=== PATIENT | male | born 1960 | race Two or more races ===

== ENCOUNTER 2024-09-24 08:41 | Outpatient (AMB) | payer MEDICAID, SELFPAY ==
[2024-09-24 08:53] VITALS: BP 168/78; PULSE 82; RESP 19; TEMP 36.6; O2SAT 98; BMI 23.1
--- NOTE | 2024-09-24 08:53 | PD.RESCLINIC ---
Vital Signs 09/24/24 08:53 Height 1.83 m Height Method Stated Weight 77.621 kg Weight Measurement Method Standing Scale BMI 23.1 BP 168/78 H Blood Pressure Source Automatic Cuff Blood Pressure Location Left Upper Arm Position Sitting Respiration 19 Pulse 82 Pulse Source Monitor Temp 97.9 F Temp Source Oral Pulse Oximetry (%) 98 Oxygen Delivery Method Room Air Allergies/Meds Allergies & Medications Allergies No Known Allergies Allergy (Verified 09/24/24 08:54) Medication Reconciliation metformin 500 mg tablet 500 mg PO BIDWMEAL #180 tabs 07/23/24 [Rx Confirmed 09/24/24] sitagliptin phosphate 100 mg tablet (Januvia) 100 mg PO QDAY #90 tabs 07/23/24 [Rx Confirmed 09/24/24] lisinopril 10 mg tablet 10 mg PO QDAY high blood pressure 30 days #30 tabs 09/24/24 [Rx] terbinafine HCl 250 mg tablet 250 mg PO QDAY onychomycosis #30 tabs 09/24/24 [Rx] MA Intake Visit Data Collection New Patient or Established: Established Patient (seen at [facility] within 3 years) Seen by Clinical Staff ONLY (RN/MA): No Pain Present Currently: No Pain scale:: 0 Pain Scale Used: [place]/Numerical PCP or OBGYN visit in last 3 months: Yes Do You Feel Safe at Home: Yes Smoking Status Smoking Status: Current every day smoker Cessation Counseling Provided: SAE was advised that quitting smoking is the single most important factor to protect the health of themselves and their family. Discussed the benefits of quitting smoking with patient. Encouraged patient to quit smoking and provided Cessation assistance materials and resources. Tobacco Use: Cigarette Years smoked: 30 Are you interested in quitting?: Yes Would you like additional Smoking Cessation Counseling?: Yes Immunization / Flu Flu Vaccine in the Last 12 Months: No Flu Vaccine Exclusion Criteria: No Exclusion Criteria Past Medical History Past Medical History NEUROLOGIC: Negative Neurological Disorders CARDIAC: Negative Cardiac Disorders or Congestive Heart Failure RESPIRATORY: Positive Smoking and Tobacco Use; Negative Chronic Obstructive Pulmonary Disease (COPD) GASTROINTESTINAL: Negative Gastrointestinal Disorders, Hepatitis or Colorectal Cancer GENITOURINARY: Negative Genitourinary Disorders, Renal Disease or Prostate Cancer REPRODUCTIVE: Negative Breast Cancer or Testicular Cancer MUSCULOSKELETAL: Negative Bone Cancer ENDOCRINE: Positive Endocrine Disorders and Diabetes Mellitus Type 2; Negative Diabetes Mellitus Type 1 HEMATOLOGIC: Negative Blood Disorders OTHER HISTORY: Negative Hospitalization, Down Syndrome, Developmental Delay, Shingles, Falls, Blood Transfusions, Blood Transfusion Reaction, Anesthesia Reactions, Organ Transplant, Chemotherapy, Hyperbaric Therapy, MRSA, VRSA, Vancomycin-Resistant Enterococci, Human Immunodeficiency Virus (HIV), Chicken Pox, Measles, Mumps, Rubella (Yoruba Measles), Pertussis, Clostridium Difficile, Cancer, Breast Cancer, Cervical Cancer, Colorectal Cancer, Lung Cancer, Ovarian Cancer, Prostate Cancer or Testicular Cancer Family History FAMILY HISTORY: Negative Family Psychiatric Problems, Family Respiratory Disorders, Family Cardiac Disorders, Family Gastrointestinal Problems, Family Cancer, Family Surgery or Family Anesthesia Reaction Surgical History SURGICAL: Negative Organ Transplant Social History SMOKING STATUS: Smoking status: Current every day smoker PACK YEARS: Pack-Years: 30 ALCOHOL: Alcohol Intake: Former (Last drink 2020) HOUSING: Housing: Apartment LIVES WITH: Lives With: Alone Patient Portal Questionaires PHQ-9 PHQ-2 Over the last 2 weeks, how often have you been bothered by any of the following problems? 1. Little interest or pleasure in doing things: not at all PHQ-9 8. Moving or speaking so slowly that other people could have noticed? - Or the opposite - being so fidgety or restless that you have been moving around a lot more than usual: not at all Source: Developed by Drs. Jeffrey Desai, Jasmin Lomax, Emilio Gillespie and colleagues, with an educational shawn from [employer]. Social History Living Situation History Housing: Apartment Tobacco History Smoking Status: Current every day smoker Packs per Day: 0.5 Pack-Years: 30 Alcohol History Alcohol Intake: Former (Last drink 2020) Domestic Abuse History Do You Feel Safe at Home: Yes Review of Systems Report any current symptoms Only answer those that you have currently: Past Medical History Past Medical History Have you ever been diagnosed with any of the following: Cardiology Problems Congestive Heart Failure: No Respiratory Problems Chronic Obstructive Pulmonary Disease (COPD): No Smoking: Yes Tobacco Use: Yes Stomache/Intestinal Problems Hepatitis: No Colorectal Cancer: No Genital/Urinary Problems Renal Disease: No Prostate Cancer: No Reproductive Problems Breast Cancer: No Testicular Cancer: No Musculoskeletal Problems Bone Cancer: No Endocrine Problems Diabetes Mellitus Type 1: No Diabetes Mellitus Type 2: Yes Other Problems Hospitalization: No Down Syndrome: No Developmental Delay: No Shingles: No Falls: No Blood Transfusions: No Blood Transfusion Reaction: No Anesthesia Reactions: No Organ Transplant: No Chemotherapy: No Hyperbaric Therapy: No MRSA: No VRSA: No Vancomycin-Resistant Enterococci: No Human Immunodeficiency Virus (HIV): No Chicken Pox: No Measles: No Mumps: No Rubella (Yoruba Measles): No Pertussis: No Clostridium Difficile: No Cancer: No Cervical Cancer: No Lung Cancer: No Ovarian Cancer: No History of Present Illness HPI Narrative Patient is a 64-year-old male with past medical history of hypertension, type 2 diabetes, and tobacco use disorder who presents to the [facility] on 09/24/2024 for 2 month follow-up visit. Patient feels well and denies any complaints today. Patient reports his BP has been ranging 150s systolic. He is taking lisinopril 5 mg once daily and denies any side effects, tolerating well. BP today in office 168/78. He brought in his BP wrist cuff today and BP was similar range, also taken with manual BP cuff in office was 165/80. We will increase the lisinopril dose. Patient requests refills of terbinafine as well. Patient is still actively smoking a little less than 1 pack per day, states he is still interested in quitting but also not wanting to start medications yet. He has tried to cut down and stop for about 1 week at a time but went back. He is interested in getting the chest CT screening. Objective/Exam Narrative Physical exam: Physical Exam General: Awake and in no acute distress. Conversational and non-toxic appearing. HEENT: Normocephalic, atraumatic, mucous membranes moist. Heart: Regular rate and rhythm, no murmurs. Lungs: Clear to auscultation with no wheezing or crackles. Abdomen: Soft, nondistended, nontender, positive bowel sounds. ?No guarding or rebound tenderness. Neurologic: Alert and oriented x3, no gross neurological deficit, and patient able to move all 4 extremities. Extremities: No edema. Onycchomycosis of toenails. Skin: No rash or ecchymoses. Assessment & Plan Diagnosis / Problem List (1) Hypertension: Status: Chronic Qualifiers: Hypertension type: primary hypertension Qualified Code(s): I10 - Essential (primary) hypertension Assessment & Plan: History of essential hypertension, previously tried control with losartan 50 mg BID, patient complained of dizziness, tried adjusting to 50 mg qAM and 25 mg qPM however patient stopped medication altogether. Patient reports BP averaged about 140-150 systolic at home. 07/23/2024: In office BP 183/89. 09/24/2024: In office BP 168/78. 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 States last seen around 03/2024. Encouraged to see at least once yearly. Supervisor Pumping: None. Completed diabetic foot exam on 07/23/2024. Plan: -Follow-up hemoglobin A1c lab ordered - [facility] form filled out -Continue home metformin 500 mg twice daily -Continue home sitagliptin 100 mg once daily (3) Microalbuminuria: Status: Chronic Assessment & Plan: Alb/Cr ratio: 46 [49 in 01/2024] = microalbuminuria Plan: -Encouraged patient compliance with BP control especially with an PENNY or ARB (4) Onychomycosis: Status: Chronic Assessment & Plan: Patient reports improvement after starting terbinafine, however had run out of the medication. Over the counter medications had not been helping. Plan: -Continue treatment with terbinafine 250 mg once daily - refilled (5) Tobacco dependence with current use: Status: Chronic Assessment & Plan: Patient reports history of smoking since age 13. He was also a former drinker and reports that he was able to stop drinking. He would prefer to try quitting smoking by himself without additional medications or supplements. He is working to decrease his dose of tobacco. Plan: -Pending CT chest low intensity for screening of lung cancer - awaiting scheduling -Patient was counseled on tobacco cessation including options for assistance including medications and nicotine replacement therapy, interested in quitting however declines assistance for now Office Procedures [facility] Level of Care Nursing/Assessment Patient Status: Established Patient Nursing Assessment/Reassessment: Medication Reconciliation, Update PMH in EMR and Vital Signs Coordination of Care: Complex Care and Chronic Disease 1-5, Education Complex Pt/Fam, Results/Orders obtained and Staff clarify orders Established Patient Charge Established Patient Point Assignment: 90 Established Patient Point Charge: EP Level 3 (80-115)
== END 2024-09-24 09:35 | disposition home or self-care (01) ==
LOC: HODAHC 08:41
PROVIDERS: PCP Student in an Organized Health Care Education/Training Program; Referring Provider Student in an Organized Health Care Education/Training Program; Supervising Provider Internal Medicine; Visit Provider Student in an Organized Health Care Education/Training Program
DX: I10 Essential (primary) hypertension (principal); F17.210 Nicotine dependence, cigarettes, uncomplicated; E11.9 Type 2 diabetes mellitus without complications; R80.9 Proteinuria, unspecified; B35.1 Tinea unguium
CPT/HCPCS: 99213; G0463

== ENCOUNTER 2024-11-26 08:40 | Outpatient (AMB) | payer MEDICAID, SELFPAY ==
--- NOTE | 2024-11-26 08:41 | ACNOTE_ITS ---
Vital Signs 11/26/24 08:47 Height 1.83 m Height Method Stated Weight 76.204 kg Weight Measurement Method Standing Scale BMI 22.8 BP 188/90 H Blood Pressure Source Automatic Cuff Blood Pressure Location Left Upper Arm Position Sitting Respiration 16 Pulse 84 Pulse Source Monitor Temp 97.8 F Temp Source Oral Pulse Oximetry (%) 98 Oxygen Delivery Method Room Air Allergies/Meds Allergies & Medications Allergies No Known Allergies Allergy (Verified 11/26/24 08:48) Medication Reconciliation amlodipine 5 mg tablet 5 mg PO QDAY #30 tabs 11/26/24 [Rx] lisinopril 20 mg tablet 20 mg PO QDAY #30 tabs 11/26/24 [Rx] metformin 500 mg tablet 500 mg PO BIDWMEAL #180 tabs 11/26/24 [Rx] nicotine 14 mg/24 hr daily transdermal patch (Nicoderm CQ) 1 patch transdermal Q24H #28 ea 11/26/24 [Rx] sitagliptin phosphate 100 mg tablet (Januvia) 100 mg PO QDAY #90 tabs 11/26/24 [Rx] terbinafine HCl 250 mg tablet 250 mg PO QDAY onychomycosis #30 tabs 11/26/24 [Rx] MA Intake Visit Data Collection New Patient or Established: Established Patient (seen at [facility] within 3 years) Seen by Clinical Staff ONLY (RN/MA): No Reason for Visit:: hypertension and diabetes follow up Pain Present Currently: No Pain scale:: 0 Pain Scale Used: [place]/Numerical PCP or OBGYN visit in last 3 months: Yes Smoking Status Smoking Status: Current every day smoker Cessation Counseling Provided: SAE was advised that quitting smoking is the single most important factor to protect the health of themselves and their family. Discussed the benefits of quitting smoking with patient. Encouraged patient to quit smoking and provided Cessation assistance materials and resources. Tobacco Use: Cigarette Years smoked: 50 Are you interested in quitting?: Yes Would you like additional Smoking Cessation Counseling?: Yes Immunization / Flu Flu Vaccine in the Last 12 Months: No Flu Vaccine Exclusion Criteria: No Exclusion Criteria Past Medical History Past Medical History NEUROLOGIC: Negative Neurological Disorders CARDIAC: Negative Cardiac Disorders or Congestive Heart Failure RESPIRATORY: Positive Smoking and Tobacco Use; Negative Chronic Obstructive Pulmonary Disease (COPD) GASTROINTESTINAL: Negative Gastrointestinal Disorders, Hepatitis or Colorectal Cancer GENITOURINARY: Negative Genitourinary Disorders, Renal Disease or Prostate Cancer REPRODUCTIVE: Negative Breast Cancer or Testicular Cancer MUSCULOSKELETAL: Negative Bone Cancer ENDOCRINE: Positive Endocrine Disorders and Diabetes Mellitus Type 2; Negative Diabetes Mellitus Type 1 HEMATOLOGIC: Negative Blood Disorders OTHER HISTORY: Negative Hospitalization, Down Syndrome, Developmental Delay, Shingles, Falls, Blood Transfusions, Blood Transfusion Reaction, Anesthesia Reactions, Organ Transplant, Chemotherapy, Hyperbaric Therapy, MRSA, VRSA, Vancomycin-Resistant Enterococci, Human Immunodeficiency Virus (HIV), Chicken Pox, Measles, Mumps, Rubella (Bahamian Measles), Pertussis, Clostridium Difficile, Cancer, Breast Cancer, Cervical Cancer, Colorectal Cancer, Lung Cancer, Ovarian Cancer, Prostate Cancer or Testicular Cancer Family History FAMILY HISTORY: Negative Family Psychiatric Problems, Family Respiratory Disorders, Family Cardiac Disorders, Family Gastrointestinal Problems, Family Cancer, Family Surgery or Family Anesthesia Reaction Surgical History SURGICAL: Negative Organ Transplant Social History SMOKING STATUS: Smoking status: Current every day smoker PACK YEARS: Pack-Years: 30 ALCOHOL: Alcohol Intake: Former (Last drink 2020) HOUSING: Housing: Apartment LIVES WITH: Lives With: Alone Patient Portal Questionaires PHQ-9 PHQ-2 Over the last 2 weeks, how often have you been bothered by any of the following problems? 1. Little interest or pleasure in doing things: not at all PHQ-9 8. Moving or speaking so slowly that other people could have noticed? - Or the opposite - being so fidgety or restless that you have been moving around a lot more than usual: not at all Source: Developed by Drs. Jeffrey Desai, Jasmin Lomax, Emilio Gillespie and colleagues, with an educational shawn from [employer]. Social History Living Situation History Housing: Apartment Tobacco History Smoking Status: Current every day smoker Packs per Day: 0.5 Pack-Years: 30 Alcohol History Alcohol Intake: Former (Last drink 2020) Review of Systems Report any current symptoms Only answer those that you have currently: Past Medical History Past Medical History Have you ever been diagnosed with any of the following: Cardiology Problems Congestive Heart Failure: No Respiratory Problems Chronic Obstructive Pulmonary Disease (COPD): No Smoking: Yes Tobacco Use: Yes [place]omache/Intestinal Problems Hepatitis: No Colorectal Cancer: No Genital/Urinary Problems Renal Disease: No Prostate Cancer: No Reproductive Problems Breast Cancer: No Testicular Cancer: No Musculoskeletal Problems Bone Cancer: No Endocrine Problems Diabetes Mellitus Type 1: No Diabetes Mellitus Type 2: Yes Other Problems Hospitalization: No Down Syndrome: No Developmental Delay: No Shingles: No Falls: No Blood Transfusions: No Blood Transfusion Reaction: No Anesthesia Reactions: No Organ Transplant: No Chemotherapy: No Hyperbaric Therapy: No MRSA: No VRSA: No Vancomycin-Resistant Enterococci: No Human Immunodeficiency Virus (HIV): No Chicken Pox: No Measles: No Mumps: No Rubella (Bahamian Measles): No Pertussis: No Clostridium Difficile: No Cancer: No Cervical Cancer: No Lung Cancer: No Ovarian Cancer: No History of Present Illness HPI Narrative Patient is a 64-year-old male with past medical history of hypertension, type 2 diabetes, and tobacco use disorder who presents to the [facility] on 09/24/2024 for 2 month follow-up visit. Patient feels well and denies any complaints today. Patient reports his BP has been ranging 150s systolic. He is taking lisinopril 5 mg once daily and denies any side effects, tolerating well. BP today in office 168/78. He brought in his BP wrist cuff today and BP was similar range, also taken with manual BP cuff in office was 165/80. We will increase the lisinopril dose. Patient requests refills of terbinafine as well. Patient is still actively smoking a little less than 1 pack per day, states he is still interested in quitting but also not wanting to start medications yet. He has tried to cut down and stop for about 1 week at a time but went back. He is interested in getting the chest CT screening. 11/26/2024: 64-year-old man with past medical history of uncontrolled hypertension, diabetes mellitus type 2 [id number], tobacco use disorder who came to the [facility] for follow-up with labs. Patient denied any acute complaints at the moment like shortness of breath, dizziness, chest pain, hypoglycemia episodes or any other associated symptoms different than the mentioned above. Follow-up labs showed A1c 6.2, cholesterol 133, triglycerides 75 HDL 50 LDL 68, average glucose 173, creatinine 0.70, EGFR 104, liver enzymes within normal limits. patient stated that at home his blood pressure has been average of 170-160 and sometimes 150's. Patient endorsed that sometimes he has tingling sensation bilateral lower extremities and some fatigue on the legs when he is not very active, and that it is relieved by exercise. Patient is still actively smoking around 10 to 12 cigarettes and he still interested in quitting and does not want to try medications at this time, patient was counseled about importance to quit smoking and was recommended to use nicotine gum or patches to relieve the smoking cravings and he will like to give them a try. Patient was referred for annual ophthalmology and podiatry screening for diabetes retinopathy and neuropathy. We reordered CT chest screening for lung cancer and we will optimize blood pressure control and increase lisinopril to 20 mg p.o. daily and add amlodipine 5 mg p.o. daily Patient was counseled about medication side effects of PENNY/ARB's and calcium channel blockers that include decreased kidney function for which CMP for close monitoring were ordered as well as lower extremity edema. We will follow-up with lab results in 3 to 4 weeks. Review of Systems Review of Systems Systems Reviewed: All systems reviewed, normal except as documented Objective/Exam Narrative Physical exam: General: No acute distress, well appearing, alert, interactive. HEENT: NC/AT, PERRL, EOMI, Good conjugate gaze, moist mucous membranes, oropharynx clear. Neck: Supple, No masses, No adenopathy, carotid pulse 2+ bilaterally without bruits, No JVD, normal range of motion. Chest: Symmetrical, atraumatic, and with equal expansion , Nontender on palpation no deformity and no crepitus. CVS: S1 and S2 present, Regular rate and rhythm, No murmurs, rubs or gallops perceived during auscultation. Lungs: Normal respiratory effort, CTAB, no wheezing, rhonchi or rales perceived during auscultation, No intercostal or subcostal retraction. Abdomen : Soft, no tenderness to palpation, no guarding ,no rebound Extremities: No edema, warm well perfused, normal tone and ROM, strength and sensation intact, cap refill less than 2, +2 dp equal bilaterally, able to move all 4 extremities spontaneously, decreased sensation on bilateral lower extremities with monofilament test more pronounced on left lower extremity, bilateral onychomycosis of toes. Skin: Intact, no rashes, no lesions, no erythema or jaundice noted Neuro: AOx4, no focal neurologic deficits noted, GCS 15 Psych: Appropriate mood and affect. Assessment & Plan Diagnosis / Problem List (1) Hypertension: Status: Chronic Qualifiers: Hypertension type: primary hypertension Qualified Code(s): I10 - Essential (primary) hypertension Assessment & Plan: History of essential hypertension, previously tried control with losartan 50 mg BID, patient complained of dizziness, tried adjusting to 50 mg qAM and 25 mg qPM however patient stopped medication altogether. Patient reports BP averaged about 140-150 systolic at home. 07/23/2024: In office BP 183/89. 09/24/2024: In office BP 168/78. 11/26/2023: In office BP 188/90. Plan: - Increase lisinopril from 10 mg to 20 mg once daily - Add amlodipine 10mg daily - Follow up in 3-4 weeks with labs (2) Diabetes mellitus: Status: Chronic Qualifiers: Diabetes mellitus complication detail: with diabetic microalbuminuria Diabetes mellitus complication status: with kidney complications Diabetes mellitus usp insulin use: without remote computer terminal operator use Diabetes mellitus type: type 2 Qualified Code(s): E11.29 - Type 2 diabetes mellitus with other diabetic kidney complication; R80.9 - Proteinuria, unspecified Assessment & Plan: A1c 05/2024: 6.5 = controlled Alb/Cr ratio: 46 [49 in 01/2024] = microalbuminuria Pleating Supervisor: Patient sees an Pleating Supervisor in [place]. States last seen around 03/2024. Encouraged to see at least once yearly. Taxation Economist: None. Completed diabetic foot exam on 07/23/2024. A1c 11/12/2024: 6.2 = controlled Plan: ? Referral to construction recruiter and polymerization oven operator for annual screening for diabetic neuropathy and nephropathy -Continue home metformin 500 mg twice daily -Continue home sitagliptin 100 mg once daily (3) Microalbuminuria: Status: Chronic Assessment & Plan: Alb/Cr ratio: 46 [49 in 01/2024] = microalbuminuria Plan: -Encouraged patient compliance with BP control especially with an PENNY or ARB. (4) Tobacco dependence with current use: Status: Chronic Assessment & Plan: Patient reports history of smoking since age 13. He was also a former drinker and reports that he was able to stop drinking. He would prefer to try quitting smoking by himself without additional medications or supplements. He is working to decrease his dose of tobacco. Plan: - Reorder CT chest low intensity for screening of lung cancer - Patient was counseled on tobacco cessation including options for assistance including medications and nicotine replacement therapy, interested in quitting and would like to try nicotine replacement patches. ? Prescribed nicotine patches and we will assess tolerance and follow-up in 3 weeks (5) Onychomycosis: Status: Chronic Assessment & Plan: Patient reports improvement after starting terbinafine, Plan: -Continue treatment with terbinafine 250 mg once daily refilled today (6) Bilateral leg paresthesia: Status: Acute Assessment & Plan: Patient endorsed bilateral leg paresthesias and fatigue that he stated that improved with exercise and movement. Differentials include PAD due to patient history of heavy smoking seen he has 13 years old as well as diabetic neuropathy. Plan: Patient was counseled about importance of weekly exercise at least 30 minutes to improve symptoms of claudication ? Referral to construction recruiter for annual diabetic screening for neuropathy. Orders: Orders CT lung low-dose screening wo Today Z53.20 - Procedure and treatment not carried out because of patient's decision for unspecified reasons Referrals Ophthalmology Z13.5 - Encounter for screening for eye and ear disorders Podiatry B35.1 - Tinea unguium, Z13.89 - Encounter for screening for other disorder Additional Assessment Patient discussed with my attending Dr Richi Mariee MD PGY-3 Disclaimer: Despite multiple revisions, due to the dictation software being used, the document bellow may not be free of grammatical errors including phonetic/typographic errors. However, this does not deter from our commitment to providing health care in the patient's best interest in mind. Internal Medicine Attending Note: Case discussed with and agree with note and management plan of Resident Mehreen carrion as per Resident's Note above. Issues of concern for present visit are as follows: Follow-up visit. Most recent labs reviewed. Hemoglobin A1c at goal of 6.2. Lipid levels in good range. Renal function stable. Diet, exercise, footcare, eye care reviewed. Patient noting some symptoms potentially consistent with diabetic neuropathy. Continues to smoke, counseled on cessation, willing to try nicotine replacement therapy. We will reorder a CT of the chest low-dose screening for lung cancer. Referrals for ophthalmology and podiatry for screening given diabetes. Blood pressure noted to be elevated again today. We will increase lisinopril to 20 mg daily and add amlodipine 5 mg daily. Watch for side effect of edema. Price Stoddard MD Physician Billing Established Patient Established Patient: E/M Level 3-CPT 23856 Office Procedures [facility] Level of Care Nursing/Assessment Patient Status: Established Patient Nursing Assessment/Reassessment: Medication Reconciliation, Update PMH in EMR and Vital Signs Coordination of Care: Complex Care and Chronic Disease 1-5, Consent,records obtained, informed consent, Education Simp Pt/Fam and Staff clarify orders Established Patient Charge Established Patient Point Assignment: 85 Established Patient Point Charge: EP Level 3 (80-115)
[2024-11-26 08:47] VITALS: BP 188/90; PULSE 84; RESP 16; TEMP 36.6; O2SAT 98; BMI 22.8
== END 2024-11-26 10:12 | disposition home or self-care (01) ==
LOC: HODAHC 08:40
PROVIDERS: PCP Student in an Organized Health Care Education/Training Program; Referring Provider Student in an Organized Health Care Education/Training Program; Supervising Provider Internal Medicine; Visit Provider Student in an Organized Health Care Education/Training Program
DX: B35.1 Tinea unguium (principal); I10 Essential (primary) hypertension; E11.9 Type 2 diabetes mellitus without complications; R80.9 Proteinuria, unspecified; R20.2 Paresthesia of skin; F17.210 Nicotine dependence, cigarettes, uncomplicated; Z71.6 Tobacco abuse counseling
CPT/HCPCS: 99213; G0463

== ENCOUNTER 2024-12-17 08:36 | Outpatient (AMB) | payer MEDICAID, SELFPAY ==
[2024-12-17 08:47] VITALS: BP 145/79; PULSE 86; RESP 16; TEMP 36.8; O2SAT 98; BMI 22.5
--- NOTE | 2024-12-17 08:47 | PD.RESCLINIC ---
Vital Signs 12/17/24 08:47 Height 1.83 m Height Method Stated Weight 75.353 kg Weight Measurement Method Standing Scale BMI 22.5 BP 145/79 H Blood Pressure Source Automatic Cuff Blood Pressure Location Left Upper Arm Position Sitting Respiration 16 Pulse 86 Pulse Source Monitor Temp 98.2 F Temp Source Temporal Artery Scan Pulse Oximetry (%) 98 Oxygen Delivery Method Room Air Allergies/Meds Allergies & Medications Allergies No Known Allergies Allergy (Verified 01/28/25 08:46) Medication Reconciliation metformin 500 mg tablet 500 mg PO BIDWMEAL #180 tabs 11/26/24 [Rx Confirmed 01/28/25] nicotine 14 mg/24 hr daily transdermal patch (Nicoderm CQ) 1 patch transdermal Q24H #28 ea 11/26/24 [Rx Confirmed 01/28/25] sitagliptin phosphate 100 mg tablet (Januvia) 100 mg PO QDAY #90 tabs 11/26/24 [Rx Confirmed 01/28/25] terbinafine HCl 250 mg tablet 250 mg PO QDAY onychomycosis #30 tabs 11/26/24 [Rx Confirmed 01/28/25] amlodipine 10 mg tablet 10 mg PO QDAY high blood pressure 30 days #30 tabs 01/28/25 [Rx] guaifenesin 400 mg tablet 400 mg PO QID PRN cough #20 tabs 01/28/25 [Rx] lisinopril 40 mg tablet 40 mg PO QDAY high blood pressure 30 days #30 tabs 01/28/25 [Rx] MA Intake Visit Data Collection New Patient or Established: Established Patient (seen at [facility] within 3 years) Seen by Clinical Staff ONLY (RN/MA): No Pain Present Currently: No Pain scale:: 0 Pain Scale Used: [place]/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 Discussed the benefits of quitting smoking with patient. Encouraged patient to quit smoking and provided Cessation assistance materials and resources. Tobacco Use: Cigarette Years smoked: 40 Are you interested in quitting?: Yes Would you like additional Smoking Cessation Counseling?: No Immunization / Flu Flu Vaccine in the Last 12 Months: No Flu Vaccine Exclusion Criteria: No Exclusion Criteria Past Medical History Past Medical History NEUROLOGIC: Negative Neurological Disorders CARDIAC: Negative Cardiac Disorders or Congestive Heart Failure RESPIRATORY: Positive Smoking and Tobacco Use; Negative Chronic Obstructive Pulmonary Disease (COPD) GASTROINTESTINAL: Negative Gastrointestinal Disorders, Hepatitis or Colorectal Cancer GENITOURINARY: Negative Genitourinary Disorders, Renal Disease or Prostate Cancer REPRODUCTIVE: Negative Breast Cancer or Testicular Cancer MUSCULOSKELETAL: Negative Bone Cancer ENDOCRINE: Positive Endocrine Disorders and Diabetes Mellitus Type 2; Negative Diabetes Mellitus Type 1 HEMATOLOGIC: Negative Blood Disorders OTHER HISTORY: Negative Hospitalization, Down Syndrome, Developmental Delay, Shingles, Falls, Blood Transfusions, Blood Transfusion Reaction, Anesthesia Reactions, Organ Transplant, Chemotherapy, Hyperbaric Therapy, MRSA, VRSA, Vancomycin-Resistant Enterococci, Human Immunodeficiency Virus (HIV), Chicken Pox, Measles, Mumps, Rubella (Jordanian Measles), Pertussis, Clostridium Difficile, Cancer, Breast Cancer, Cervical Cancer, Colorectal Cancer, Lung Cancer, Ovarian Cancer, Prostate Cancer or Testicular Cancer Family History FAMILY HISTORY: Negative Family Psychiatric Problems, Family Respiratory Disorders, Family Cardiac Disorders, Family Gastrointestinal Problems, Family Cancer, Family Surgery or Family Anesthesia Reaction Surgical History SURGICAL: Negative Organ Transplant Social History SMOKING STATUS: Smoking status: Current every day smoker PACK YEARS: Pack-Years: 30 ALCOHOL: Alcohol Intake: Former (Last drink 2020) HOUSING: Housing: Apartment LIVES WITH: Lives With: Alone Patient Portal Questionaires PHQ-9 PHQ-2 Over the last 2 weeks, how often have you been bothered by any of the following problems? 1. Little interest or pleasure in doing things: not at all PHQ-9 8. Moving or speaking so slowly that other people could have noticed? - Or the opposite - being so fidgety or restless that you have been moving around a lot more than usual: not at all Source: Developed by Drs. Jeffrey Desai, Jasmin Lomax, Emilio Gillespie and colleagues, with an educational shawn from [employer]. Social History Living Situation History Housing: Apartment Tobacco History Smoking Status: Current every day smoker Packs per Day: 0.5 Pack-Years: 30 Alcohol History Alcohol Intake: Former (Last drink 2020) Domestic Abuse History Do You Feel Safe at Home: Yes Review of Systems Report any current symptoms Only answer those that you have currently: Past Medical History Past Medical History Have you ever been diagnosed with any of the following: Cardiology Problems Congestive Heart Failure: No Respiratory Problems Chronic Obstructive Pulmonary Disease (COPD): No Smoking: Yes Tobacco Use: Yes Stomache/Intestinal Problems Hepatitis: No Colorectal Cancer: No Genital/Urinary Problems Renal Disease: No Prostate Cancer: No Reproductive Problems Breast Cancer: No Testicular Cancer: No Musculoskeletal Problems Bone Cancer: No Endocrine Problems Diabetes Mellitus Type 1: No Diabetes Mellitus Type 2: Yes Other Problems Hospitalization: No Down Syndrome: No Developmental Delay: No Shingles: No Falls: No Blood Transfusions: No Blood Transfusion Reaction: No Anesthesia Reactions: No Organ Transplant: No Chemotherapy: No Hyperbaric Therapy: No MRSA: No VRSA: No Vancomycin-Resistant Enterococci: No Human Immunodeficiency Virus (HIV): No Chicken Pox: No Measles: No Mumps: No Rubella (Jordanian Measles): No Pertussis: No Clostridium Difficile: No Cancer: No Cervical Cancer: No Lung Cancer: No Ovarian Cancer: No History of Present Illness HPI Narrative Patient is a 65-year-old male with past medical history of hypertension, type 2 diabetes, and tobacco use disorder who presents to the [facility] on 12/17/2024 for 1 month follow-up visit for BP recheck. Office BP 145/79 today. Patient has been compliant with lisinopril 20 mg daily and amlodipine 5 mg daily. BP overall is improved. Patient denies any side effects with these current medications and denies cough with the lisinopril. Review of CMP labs ordered last visit and resulted 12/11/2024 show slightly elevated glucose at 105 otherwise normal, BUN 17, creatinine 0.77, GFR 105. He has an upcoming appointment with Training Representative Dr. Alexis Mccullough in a few weeks. Patient is still smoking a little less than pack per day reports still has not received scheduling for low-dose screening chest CT, will check status. Objective/Exam Narrative Physical exam: Physical Exam General: Awake and in no acute distress. Conversational and non-toxic appearing. HEENT: Normocephalic, atraumatic, mucous membranes moist. Heart: Regular rate and rhythm, no murmurs. Lungs: Clear to auscultation with no wheezing or crackles. Abdomen: Soft, nondistended, nontender, positive bowel sounds. ?No guarding or rebound tenderness. Neurologic: Alert and oriented x3, no gross neurological deficit, and patient able to move all 4 extremities. Extremities: No edema. Onycchomycosis of toenails. Skin: No rash or ecchymoses. Assessment & Plan Diagnosis / Problem List (1) Hypertension: Status: Chronic Qualifiers: Hypertension type: primary hypertension Qualified Code(s): I10 - Essential (primary) hypertension Assessment & Plan: History of essential hypertension. Previously tried control with losartan 50 mg BID, patient complained of dizziness, tried adjusting to 50 mg qAM and 25 mg qPM however patient stopped medication altogether. Patient reports BP averaged about 140-150 systolic at home. 07/23/2024: BP 183/89 09/24/2024: BP 168/78 11/26/2024: BP 188/90 12/17/2024: BP 145/79 Plan: - Continue lisinopril 20 mg daily - Continue amlodipine 5 mg daily - Follow up in 6 weeks for BP check, follow up with referrals (2) Tobacco dependence with current use: Status: Chronic Assessment & Plan: Patient reports history of smoking since age 13. He was also a former drinker and reports that he was able to stop drinking. He would prefer to try quitting smoking by himself without additional medications or supplements. He is working to decrease his dose of tobacco. Patient reported difficulty sleeping on the nicotine patches. Plan: - Call for appointment CT chest low intensity for screening of lung cancer - Patient was counseled on tobacco cessation including options for assistance including medications and nicotine replacement therapy, interested in quitting and would like to try nicotine replacement patches. - Use nicotine patches (3) Diabetes mellitus: Status: Chronic Qualifiers: Diabetes mellitus type: type 2 Diabetes mellitus penitentiary insulin use: without penitentiary use Diabetes mellitus complication status: with kidney complications Diabetes mellitus complication detail: with diabetic microalbuminuria Qualified Code(s): E11.29 - Type 2 diabetes mellitus with other diabetic kidney complication; R80.9 - Proteinuria, unspecified Assessment & Plan: A1c 05/2024: 6.5 = controlled Alb/Cr ratio: 46 [49 in 01/2024] = microalbuminuria Automobile Mechanic Supervisor: Patient sees an Automobile Mechanic Supervisor in [place]. States last seen around 03/2024. Encouraged to see at least once yearly. Training Representative: None. Completed diabetic foot exam on 07/23/2024. A1c 11/12/2024: 6.2 = controlled Plan: -Continue regular follow up with wood pile driver operator and resistor tester for annual screening for diabetic neuropathy and nephropathy -Continue home metformin 500 mg twice daily -Continue home sitagliptin 100 mg once daily (4) Microalbuminuria: Status: Chronic Assessment & Plan: Alb/Cr ratio: 46 [49 in 01/2024] = microalbuminuria Plan: -Encouraged patient compliance with BP control especially with an PENNY or ARB. (5) Onychomycosis: Status: Chronic Assessment & Plan: Patient reports improvement after starting terbinafine, Plan: -Continue treatment with terbinafine 250 mg once daily (6) Bilateral leg paresthesia: Status: Acute Assessment & Plan: Patient endorsed bilateral leg paresthesias and fatigue that he stated that improved with exercise and movement. Differentials include PAD due to patient history of heavy smoking seen he has 13 years old as well as diabetic neuropathy. Plan: - Patient sees his wood pile driver operator Dr. Schmidt in a few weeks Office Procedures [facility] Level of Care Nursing/Assessment Patient Status: Established Patient Nursing Assessment/Reassessment: Medication Reconciliation, Update PMH in EMR and Vital Signs Coordination of Care: Complex Care and Chronic Disease 1-5, Consent,records obtained, informed consent, Education Simp Pt/Fam, Results/Orders obtained and Staff clarify orders Established Patient Charge Established Patient Point Assignment: 90 Established Patient Point Charge: EP Level 3 (80-115)
== END 2024-12-17 10:17 | disposition home or self-care (01) ==
LOC: HODAHC 08:36
PROVIDERS: PCP Student in an Organized Health Care Education/Training Program; Referring Provider Student in an Organized Health Care Education/Training Program; Supervising Provider Internal Medicine; Visit Provider Student in an Organized Health Care Education/Training Program
DX: I10 Essential (primary) hypertension (principal); E11.9 Type 2 diabetes mellitus without complications; F17.210 Nicotine dependence, cigarettes, uncomplicated; R80.9 Proteinuria, unspecified; B35.1 Tinea unguium; R20.2 Paresthesia of skin
CPT/HCPCS: 99213; G0463

== ENCOUNTER 2025-01-28 08:25 | Outpatient (AMB) | payer MEDICAID, SELFPAY ==
[2025-01-28 08:45] VITALS: BP 163/77; PULSE 94; RESP 16; TEMP 36.8; O2SAT 99; BMI 22.4
--- NOTE | 2025-01-28 08:45 | PD.RESCLINIC ---
Vital Signs 01/28/25 08:45 Height 1.83 m Height Method Stated Weight 75.07 kg Weight Measurement Method Standing Scale BMI 22.4 BP 163/77 H Blood Pressure Source Automatic Cuff Blood Pressure Location Left Upper Arm Position Sitting Respiration 16 Pulse 94 Pulse Source Monitor Temp 98.3 F Temp Source Temporal Artery Scan Pulse Oximetry (%) 99 Oxygen Delivery Method Room Air Allergies/Meds Allergies & Medications Allergies No Known Allergies Allergy (Verified 01/28/25 08:46) Medication Reconciliation metformin 500 mg tablet 500 mg PO BIDWMEAL #180 tabs 11/26/24 [Rx Confirmed 01/28/25] nicotine 14 mg/24 hr daily transdermal patch (Nicoderm CQ) 1 patch transdermal Q24H #28 ea 11/26/24 [Rx Confirmed 01/28/25] sitagliptin phosphate 100 mg tablet (Januvia) 100 mg PO QDAY #90 tabs 11/26/24 [Rx Confirmed 01/28/25] terbinafine HCl 250 mg tablet 250 mg PO QDAY onychomycosis #30 tabs 11/26/24 [Rx Confirmed 01/28/25] amlodipine 10 mg tablet 10 mg PO QDAY high blood pressure 30 days #30 tabs 01/28/25 [Rx] guaifenesin 400 mg tablet 400 mg PO QID PRN cough #20 tabs 01/28/25 [Rx] lisinopril 40 mg tablet 40 mg PO QDAY high blood pressure 30 days #30 tabs 01/28/25 [Rx] MA Intake Visit Data Collection New Patient or Established: Established Patient (seen at [facility] within 3 years) Seen by Clinical Staff ONLY (RN/MA): No Reason for Visit:: 1 month f/u BP recheck Pain Present Currently: No Pain scale:: 0 Pain Scale Used: [place]/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 Discussed the benefits of quitting smoking with patient. Encouraged patient to quit smoking and provided Cessation assistance materials and resources. Tobacco Use: Cigarette Immunization / Flu Flu Vaccine in the Last 12 Months: No Flu Vaccine Exclusion Criteria: No Exclusion Criteria Past Medical History Past Medical History NEUROLOGIC: Negative Neurological Disorders CARDIAC: Negative Cardiac Disorders or Congestive Heart Failure RESPIRATORY: Positive Smoking and Tobacco Use; Negative Chronic Obstructive Pulmonary Disease (COPD) GASTROINTESTINAL: Negative Gastrointestinal Disorders, Hepatitis or Colorectal Cancer GENITOURINARY: Negative Genitourinary Disorders, Renal Disease or Prostate Cancer REPRODUCTIVE: Negative Breast Cancer or Testicular Cancer MUSCULOSKELETAL: Negative Bone Cancer ENDOCRINE: Positive Endocrine Disorders and Diabetes Mellitus Type 2; Negative Diabetes Mellitus Type 1 HEMATOLOGIC: Negative Blood Disorders OTHER HISTORY: Negative Hospitalization, Down Syndrome, Developmental Delay, Shingles, Falls, Blood Transfusions, Blood Transfusion Reaction, Anesthesia Reactions, Organ Transplant, Chemotherapy, Hyperbaric Therapy, MRSA, VRSA, Vancomycin-Resistant Enterococci, Human Immunodeficiency Virus (HIV), Chicken Pox, Measles, Mumps, Rubella (Stateless Measles), Pertussis, Clostridium Difficile, Cancer, Breast Cancer, Colorectal Cancer, Lung Cancer, Prostate Cancer or Testicular Cancer Family History FAMILY HISTORY: Negative Family Psychiatric Problems, Family Respiratory Disorders, Family Cardiac Disorders, Family Gastrointestinal Problems, Family Cancer, Family Surgery or Family Anesthesia Reaction Surgical History SURGICAL: Negative Organ Transplant Social History SMOKING STATUS: Smoking status: Current every day smoker PACK YEARS: Pack-Years: 30 ALCOHOL: Alcohol Intake: Former (Last drink 2020) HOUSING: Housing: Apartment LIVES WITH: Lives With: Alone Patient Portal Questionaires PHQ-9 PHQ-2 Over the last 2 weeks, how often have you been bothered by any of the following problems? 1. Little interest or pleasure in doing things: not at all PHQ-9 8. Moving or speaking so slowly that other people could have noticed? - Or the opposite - being so fidgety or restless that you have been moving around a lot more than usual: not at all Source: Developed by Drs. Jeffrey Desai, Jasmin Lomax, Emilio Gillespie and colleagues, with an educational shawn from [employer]. Social History Living Situation History Housing: Apartment Tobacco History Smoking Status: Current every day smoker Packs per Day: 0.5 Pack-Years: 30 Alcohol History Alcohol Intake: Former (Last drink 2020) Domestic Abuse History Do You Feel Safe at Home: Yes Review of Systems Report any current symptoms Only answer those that you have currently: Past Medical History Past Medical History Have you ever been diagnosed with any of the following: Cardiology Problems Congestive Heart Failure: No Respiratory Problems Chronic Obstructive Pulmonary Disease (COPD): No Smoking: Yes Tobacco Use: Yes Stomache/Intestinal Problems Hepatitis: No Colorectal Cancer: No Genital/Urinary Problems Renal Disease: No Prostate Cancer: No Reproductive Problems Breast Cancer: No Testicular Cancer: No Musculoskeletal Problems Bone Cancer: No Endocrine Problems Diabetes Mellitus Type 1: No Diabetes Mellitus Type 2: Yes Other Problems Hospitalization: No Down Syndrome: No Developmental Delay: No Shingles: No Falls: No Blood Transfusions: No Blood Transfusion Reaction: No Anesthesia Reactions: No Organ Transplant: No Chemotherapy: No Hyperbaric Therapy: No MRSA: No VRSA: No Vancomycin-Resistant Enterococci: No Human Immunodeficiency Virus (HIV): No Chicken Pox: No Measles: No Mumps: No Rubella (Stateless Measles): No Pertussis: No Clostridium Difficile: No Cancer: No Lung Cancer: No History of Present Illness HPI Narrative Patient is a 65-year-old male with past medical history of hypertension, type 2 diabetes, and tobacco use disorder who presents to the [facility] on 01/28/2025 for 1 month follow-up visit for BP recheck. Office BP 163/77 today. Patient has been compliant with lisinopril 20 mg daily and amlodipine 5 mg daily although has run out of the amlodipine 2 days ago. He reports BP at home is still elevated however with the systolic reading in the 160s. Patient denies any side effects with these current medications and denies cough with the lisinopril. Patient reports otherwise has been recently feeling upper respiratory symptoms including right ear fullness, congestion, cough, and clear phelgm. Symptoms started about 1 week ago and have been improving. Patient also reports right eye redness, itchiness, and discomfort starting 4 days ago which has also improved. Patient denies any vision changes, purulent discharge, or sharp pain. He requests medication as needed for the productive cough. He last saw Dr. Alexis Mccullough Straight Cutter Machine 2 weeks ago. For Ophthalmology patient sees his doctor in [place] who he prefers to stay with. Patient is still smoking about 1/2 pack per day reports still has not received scheduling for low-dose screening chest CT, will re-order. Objective/Exam Narrative Physical exam: Physical Exam General: Awake and in no acute distress. Conversational and non-toxic appearing. HEENT: Normocephalic, atraumatic, mucous membranes moist. TMs clear bilaterally, trace dry cerumen. No ear canal erythema or purulence. Right eye with injected conjunctiva, no purulent discharge. Pupils equal and reactive to light, no change in visual acuity. Heart: Regular rate and rhythm, normal S1 and S2, no murmurs. Lungs: Clear to auscultation with no wheezing or crackles. Abdomen: Soft, nondistended, nontender, positive bowel sounds. ?No guarding or rebound tenderness. Neurologic: Alert and oriented x3, no gross neurological deficit, and patient able to move all 4 extremities. Extremities: No edema. Skin: No rash or ecchymoses. Assessment & Plan Diagnosis / Problem List (1) Hypertension: Status: Chronic Qualifiers: Hypertension type: primary hypertension Qualified Code(s): I10 - Essential (primary) hypertension Assessment & Plan: History of essential hypertension. Previously tried control with losartan 50 mg BID, patient complained of dizziness, tried adjusting to 50 mg qAM and 25 mg qPM however patient stopped medication altogether. Patient reports BP averaged about 140-150 systolic at home. 07/23/2024: BP 183/89 09/24/2024: BP 168/78 11/26/2024: BP 188/90 12/17/2024: BP 145/79 01/28/2025: BP 163/77 Plan: - Increase lisinopril from 20 mg to 40 mg once daily - Increase amlodipine from 5 to 10 mg once daily - Follow up in 4 weeks with renal panel ([facility]) (2) Tobacco dependence with current use: Status: Chronic Assessment & Plan: Patient reports history of smoking since age 13. He was also a former drinker and reports that he was able to stop drinking. He would prefer to try quitting smoking by himself without additional medications or supplements. He is working to decrease his dose of tobacco. Plan: - Reordered CT chest low intensity for screening of lung cancer - Patient was counseled on tobacco cessation including options for assistance including medications and nicotine replacement therapy, interested in quitting and would like to try nicotine replacement patches. ? Prescribed nicotine patches and we will assess tolerance and follow-up in 3 weeks (3) Diabetes mellitus: Status: Chronic Qualifiers: Diabetes mellitus type: type 2 Diabetes mellitus [facility] insulin use: without [facility] use Diabetes mellitus complication status: with kidney complications Diabetes mellitus complication detail: with diabetic microalbuminuria Qualified Code(s): E11.29 - Type 2 diabetes mellitus with other diabetic kidney complication; R80.9 - Proteinuria, unspecified Assessment & Plan: A1c 05/2024: 6.5 = controlled Alb/Cr ratio: 46 [49 in 01/2024] = microalbuminuria Vice President Financial: Patient sees an Vice President Financial in [place]. States last seen around 03/2024. Encouraged to see at least once yearly. Straight Cutter Machine: None. Completed diabetic foot exam on 07/23/2024. A1c 11/12/2024: 6.2 = controlled Plan: ? Referral to lip cutter and insurance marketing specialist for annual screening for diabetic neuropathy and nephropathy -Continue home metformin 500 mg twice daily -Continue home sitagliptin 100 mg once daily (4) Microalbuminuria: Status: Chronic Assessment & Plan: Alb/Cr ratio: 46 [49 in 01/2024] = microalbuminuria Plan: -Encouraged patient compliance with BP control especially with an PENNY or ARB. (5) Onychomycosis: Status: Chronic Assessment & Plan: Patient reports improvement after starting terbinafine, Plan: -Continue treatment with terbinafine 250 mg once daily refilled today (6) Bilateral leg paresthesia: Status: Acute Assessment & Plan: Patient endorsed bilateral leg paresthesias and fatigue that he stated that improved with exercise and movement. Differentials include PAD due to patient history of heavy smoking seen he has 13 years old as well as diabetic neuropathy. Plan: Patient was counseled about importance of weekly exercise at least 30 minutes to improve symptoms of claudication ? Referral to lip cutter for annual diabetic screening for neuropathy. Orders: Orders CT lung low-dose screening wo 01/28/25 F17.200 - Nicotine dependence, unspecified, uncomplicated Office Procedures [facility] Level of Care Nursing/Assessment Patient Status: Established Patient Nursing Assessment/Reassessment: Medication Reconciliation, Update PMH in EMR and Vital Signs Coordination of Care: Complex Care and Chronic Disease 1-5, Consent,records obtained, informed consent, Education Simp Pt/Fam and Staff clarify orders Established Patient Charge Established Patient Point Assignment: 85 Established Patient Point Charge: Level 3 (80-115)
== END 2025-01-28 10:02 | disposition home or self-care (01) ==
LOC: HODAHC 08:25
PROVIDERS: PCP Student in an Organized Health Care Education/Training Program; Referring Provider Student in an Organized Health Care Education/Training Program; Supervising Provider Internal Medicine; Visit Provider Student in an Organized Health Care Education/Training Program
DX: I10 Essential (primary) hypertension (principal); E11.9 Type 2 diabetes mellitus without complications; F17.210 Nicotine dependence, cigarettes, uncomplicated; Z71.6 Tobacco abuse counseling; Z79.84 Long term (current) use of oral hypoglycemic drugs; R80.9 Proteinuria, unspecified; B35.1 Tinea unguium; R20.2 Paresthesia of skin; R05.9 Cough, unspecified
CPT/HCPCS: 99213; G0463

== ENCOUNTER → 2025-02-18 | Outpatient (CLI) | payer MEDICAID, SELFPAY ==
--- NOTE | 2025-02-18 11:30 | XR_ITS ---
Examination: CT chest, without intravenous contrast. Sagittal and coronal 2-D reconstructions. Exam date and time: February 18, 2025 1114 hours INDICATIONS: Smoking history 50 years CTDI:vol (mGy) 10 DLP: (mGycm) 412 Technique: Multiple 3.0 mm axial sections of the chest to been obtained. Bone and lung density settings are obtained. Sagittal and coronal 2-D reconstructions have been obtained. Low dose protocols were performed. One or more of the following dose reduction techniques were used; automated exposure control, adjustment of the mA and/or KV according to patient size, use of iterative reconstruction technique. Findings: No thoracic aortic aneurysm dilatation Pulmonary artery segments are not enlarged Significant calcification left anterior descending coronary artery No paratracheal tracheobronchial or bronchopulmonary adenopathy No pneumonia, pulmonary edema, pleural disease or pulmonary nodules Small liver calcification No pancreatic or adrenal mass No gallstones IMPRESSION: No mediastinal lymphadenopathy No pneumonia, pulmonary edema, pleural disease or pulmonary nodules
== END | disposition home or self-care (01) ==
PROVIDERS: PCP Student in an Organized Health Care Education/Training Program; Referring Provider Student in an Organized Health Care Education/Training Program; Visit Provider Student in an Organized Health Care Education/Training Program
DX: F17.200 Nicotine dependence, unspecified, uncomplicated (principal)
CPT/HCPCS: 71271

== ENCOUNTER 2025-02-25 08:44 | Outpatient (AMB) | payer MEDICAID, SELFPAY ==
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
[2025-02-25 09:24] VITALS: BP 146/70; PULSE 76; RESP 18; TEMP 36.8; O2SAT 99; BMI 21.7
== END 2025-02-25 09:54 | disposition home or self-care (01) ==
LOC: HODAHC 08:44
PROVIDERS: PCP Student in an Organized Health Care Education/Training Program; Referring Provider Student in an Organized Health Care Education/Training Program; Supervising Provider Internal Medicine; Visit Provider Student in an Organized Health Care Education/Training Program
DX: H10.31 Unspecified acute conjunctivitis, right eye (principal); I10 Essential (primary) hypertension
CPT/HCPCS: 99213; G0463

== ENCOUNTER 2025-03-18 08:51 | Outpatient (AMB) | payer MEDICAID, SELFPAY ==
[2025-03-18 09:06] VITALS: BP 146/71; PULSE 76; RESP 18; TEMP 36.6; O2SAT 96; BMI 23.1
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
== END 2025-03-18 09:36 | disposition home or self-care (01) ==
LOC: HODAHC 08:51
PROVIDERS: PCP Student in an Organized Health Care Education/Training Program; Referring Provider Student in an Organized Health Care Education/Training Program; Supervising Provider Internal Medicine; Visit Provider Student in an Organized Health Care Education/Training Program
DX: I10 Essential (primary) hypertension (principal); H10.9 Unspecified conjunctivitis; F17.200 Nicotine dependence, unspecified, uncomplicated; Z71.6 Tobacco abuse counseling; E11.29 Type 2 diabetes mellitus with other diabetic kidney complication; R80.9 Proteinuria, unspecified; B35.1 Tinea unguium; E11.40 Type 2 diabetes mellitus with diabetic neuropathy, unspecified
CPT/HCPCS: 99213; G0463

== ENCOUNTER 2025-06-24 08:35 | Outpatient (AMB) | payer MEDICAID, SELFPAY ==
--- NOTE | 2025-06-24 08:49 | ACNOTE_ITS ---
Vital Signs 06/24/25 08:50 Height 1.83 m Height Method Stated Weight 78.018 kg Weight Measurement Method Standing Scale BMI 23.3 BP 179/87 H Blood Pressure Source Automatic Cuff Blood Pressure Location Right Upper Arm Position Sitting Respiration 19 Pulse 76 Pulse Source Monitor Temp 97.4 F Temp Source Oral Pulse Oximetry (%) 98 Oxygen Delivery Method Room Air Allergies/Meds Allergies & Medications Allergies No Known Allergies Allergy (Verified 06/24/25 08:51) Medication Reconciliation metformin 500 mg tablet 500 mg PO BIDWMEAL #180 tabs 11/26/24 [Rx Confirmed 06/24/25] nicotine 14 mg/24 hr daily transdermal patch (Nicoderm CQ) 1 patch transdermal Q24H #28 ea 11/26/24 [Rx Confirmed 06/24/25] terbinafine HCl 250 mg tablet 250 mg PO QDAY onychomycosis #30 tabs 11/26/24 [Rx Confirmed 06/24/25] guaifenesin 400 mg tablet 400 mg PO QID PRN cough #20 tabs 01/28/25 [Rx Confirmed 06/24/25] ketorolac 0.4 % eye drops 1 drp ophthalmic (eye) QID Eye discomfort #5 mL 02/25/25 [Rx Confirmed 06/24/25] hydralazine 50 mg tablet 50 mg PO TID 30 days #90 tabs 03/18/25 [Rx Confirmed 06/24/25] carvedilol 6.25 mg tablet 6.25 mg PO BID htn #60 tabs 06/24/25 [Rx] sitagliptin phosphate 100 mg tablet (Januvia) 100 mg PO QDAY #90 tabs 06/24/25 [Rx] MA Intake Visit Data Collection New Patient or Established: Established Patient (seen at [facility] within 3 years) Seen by Clinical Staff ONLY (RN/MA): No Pain Present Currently: No Pain scale:: 0 Pain Scale Used: Monterroso-[place]/Numerical PCP or OBGYN visit in last 3 months: Yes Smoking Status Smoking Status: Current every day smoker Cessation Counseling Provided: SAE was advised that quitting smoking is the single most important factor to protect the health of themselves and their family. Discussed the benefits of quitting smoking with patient. Encouraged patient to quit smoking and provided Cessation assistance materials and resources. Tobacco Use: Cigarette Years smoked: 30 Are you interested in quitting?: Yes Would you like additional Smoking Cessation Counseling?: Yes Immunization / Flu Flu Vaccine in the Last 12 Months: No Flu Vaccine Exclusion Criteria: No Exclusion Criteria Past Medical History Past Medical History NEUROLOGIC: Negative Neurological Disorders CARDIAC: Negative Cardiac Disorders or Congestive Heart Failure RESPIRATORY: Positive Smoking and Tobacco Use; Negative Chronic Obstructive Pulmonary Disease (COPD) GASTROINTESTINAL: Negative Gastrointestinal Disorders, Hepatitis or Colorectal Cancer GENITOURINARY: Negative Genitourinary Disorders, Renal Disease or Prostate Cancer REPRODUCTIVE: Negative Breast Cancer or Testicular Cancer MUSCULOSKELETAL: Negative Bone Cancer ENDOCRINE: Positive Endocrine Disorders and Diabetes Mellitus Type 2; Negative Diabetes Mellitus Type 1 HEMATOLOGIC: Negative Blood Disorders OTHER HISTORY: Negative Hospitalization, Down Syndrome, Developmental Delay, Shingles, Falls, Blood Transfusions, Blood Transfusion Reaction, Anesthesia Reactions, Organ Transplant, Chemotherapy, Hyperbaric Therapy, MRSA, VRSA, Vancomycin-Resistant Enterococci, Human Immunodeficiency Virus (HIV), Chicken Pox, Measles, Mumps, Rubella (Bangladeshi Measles), Pertussis, Clostridium Difficile, Cancer, Breast Cancer, Colorectal Cancer, Lung Cancer, Prostate Cancer or Testicular Cancer Family History FAMILY HISTORY: Negative Family Psychiatric Problems, Family Respiratory Disorders, Family Cardiac Disorders, Family Gastrointestinal Problems, Family Cancer, Family Surgery or Family Anesthesia Reaction Surgical History SURGICAL: Negative Organ Transplant Social History SMOKING STATUS: Smoking status: Current every day smoker PACK YEARS: Pack-Years: 30 ALCOHOL: Alcohol Intake: Former (Last drink 2020) HOUSING: Housing: Apartment LIVES WITH: Lives With: Alone Patient Portal Questionaires PHQ-9 PHQ-2 Over the last 2 weeks, how often have you been bothered by any of the following problems? 1. Little interest or pleasure in doing things: not at all PHQ-9 8. Moving or speaking so slowly that other people could have noticed? - Or the opposite - being so fidgety or restless that you have been moving around a lot more than usual: not at all Source: Developed by Drs. Jeffrey Desai, Jasmin Lomax, Emilio Gilelspie and colleagues, with an educational shawn from [employer]. Social History Living Situation History Housing: Apartment Tobacco History Smoking Status: Current every day smoker Packs per Day: 0.5 Pack-Years: 30 Alcohol History Alcohol Intake: Former (Last drink 2020) Review of Systems Report any current symptoms Only answer those that you have currently: Past Medical History Past Medical History Have you ever been diagnosed with any of the following: Cardiology Problems Congestive Heart Failure: No Respiratory Problems Chronic Obstructive Pulmonary Disease (COPD): No Smoking: Yes Tobacco Use: Yes Stomache/Intestinal Problems Hepatitis: No Colorectal Cancer: No Genital/Urinary Problems Renal Disease: No Prostate Cancer: No Reproductive Problems Breast Cancer: No Testicular Cancer: No Musculoskeletal Problems Bone Cancer: No Endocrine Problems Diabetes Mellitus Type 1: No Diabetes Mellitus Type 2: Yes Other Problems Hospitalization: No Down Syndrome: No Developmental Delay: No Shingles: No Falls: No Blood Transfusions: No Blood Transfusion Reaction: No Anesthesia Reactions: No Organ Transplant: No Chemotherapy: No Hyperbaric Therapy: No MRSA: No VRSA: No Vancomycin-Resistant Enterococci: No Human Immunodeficiency Virus (HIV): No Chicken Pox: No Measles: No Mumps: No Rubella (Bangladeshi Measles): No Pertussis: No Clostridium Difficile: No Cancer: No Lung Cancer: No History of Present Illness HPI Narrative Patient is a 65-year-old male with past medical history of hypertension, type 2 diabetes, and tobacco use disorder who presents to the [facility] on 03/18/2025 for 1 month follow-up visit for BP recheck as well as renal panel recheck. Office BP 146/71 today which is improved. Patient reports that he is taking all of his BP medications. Renal panel from [facility] shows creatinine that is back to baseline and that hyperkalemia is resolved. However patient reports some mild ankle edema. We will discontinue the amlodipine for now and increase the hydralazine dose from 25 to 50 mg TID. Patient states right eye itchiness has resolved. He did not need to use the prescription ketorolac and used some over the counter drops. 06/25/25: Patient has no acute complaints. BP today 179/87, states that he runs systolic 150s-160s at home. Does have some tinitus that started about 3-4 months ago. Will increase Coreg to 6.25 BID and continue hydralazine 50 TID. Patient to follow up in 2-3 weeks with A1c and CMP. Urine microalbumin ordered to see if patient is able to tolerate potential ACEI/ARB. It is noted that patient developed KATHLEEN and hyperkalemia due to lisinopril use in the past. Review of Systems Review of Systems Systems Reviewed: All systems reviewed, normal except as documented Objective/Exam Narrative Physical exam: Physical Exam: General: Alert, no acute distress. Skin: Warm, dry, intact. Head: Normocephalic, atraumatic. Eye: Normal conjunctiva, PERRL. Throat: Oral mucosa moist. No obvious lesions in oropharynx. Cardiovascular: Regular rate and rhythm, no murmur, +S1/S2. Respiratory: Lungs are clear to auscultation, respirations unlabored, no crackles, no wheezing. Gastrointestinal: Soft, nontender, non-distended. No guarding or rebound tenderness. Extremities: No edema, no cyanosis, no clubbing. 2+ radial pulse bilaterally, 2+ pedal pulse bilaterally. Neuro: No focal deficits observed. Conversant, moving all extremities. No overt cerebellar signs/incoordination. Psychiatric: Cooperative, appropriate affect. Assessment & Plan Diagnosis / Problem List (1) Hypertension: Status: Chronic Qualifiers: Hypertension type: primary hypertension Qualified Code(s): I10 - Essential (primary) hypertension Assessment & Plan: History of essential hypertension. Previously tried control with losartan 50 mg BID, patient complained of dizziness, tried adjusting to 50 mg qAM and 25 mg qPM however patient stopped medication altogether. Patient reports BP averaged about 140-150 systolic at home. 11/26/2024: BP 188/90 12/17/2024: BP 145/79 01/28/2025: BP 163/77 02/25/2025: BP 146/70 03/18/2025: BP 146/71 06/24/2025: BP 179/87 Plan: -Increased carvedilol from 3.125 mg BID to 6.25 mg BID -Continue hydralazine 50 mg TID -Follow up in 2-3 weeks with CMP ([facility]) (2) Tobacco dependence with current use: Status: Chronic Assessment & Plan: Patient reports history of smoking since age 13. He was also a former drinker and reports that he was able to stop drinking. He would prefer to try quitting smoking by himself without additional medications or supplements. He is working to decrease his dose of tobacco. Patient reported difficulty sleeping on the nicotine patches. 02/2025 CT chest low intensity for screening of lung cancer negative Plan: -Patient was counseled on tobacco cessation including options for assistance including medications and nicotine replacement therapy, interested in quitting and would like to try nicotine replacement patches. -Use nicotine patches in the morning (3) Diabetes mellitus: Status: Chronic Qualifiers: Diabetes mellitus complication detail: with diabetic microalbuminuria Diabetes mellitus complication status: with kidney complications Diabetes mellitus mcc insulin use: without terminal computer operator use Diabetes mellitus type: type 2 Qualified Code(s): E11.29 - Type 2 diabetes mellitus with other diabetic kidney complication; R80.9 - Proteinuria, unspecified Assessment & Plan: A1c 05/2024: 6.5 = controlled Alb/Cr ratio: 46 [49 in 01/2024] = microalbuminuria Chemical Strength Tester: Patient sees an Chemical Strength Tester in [place]. States last seen around 03/2024. Encouraged to see at least once yearly. Product Safety Consultant: None. Completed diabetic foot exam on 07/23/2024. A1c 11/12/2024: 6.2 = controlled Plan: -Continue regular follow up with solder technician and information technology associate for annual screening for diabetic neuropathy and nephropathy -Continue home metformin 500 mg twice daily -Continue home sitagliptin 100 mg once daily (4) Microalbuminuria: Status: Chronic Assessment & Plan: Alb/Cr ratio: 46 [49 in 01/2024] = microalbuminuria Was previously on lisinopril but developed KATHLEEN and hyperkalemia 02/2025 Plan: -Hold PENNY for now due to recent KATHLEEN -Repeat urine microalbumin test (5) Onychomycosis: Status: Chronic Assessment & Plan: Patient reports improvement after starting terbinafine, Plan: -Continue treatment with terbinafine 250 mg once daily (6) Bilateral leg paresthesia: Status: Acute Assessment & Plan: Patient endorsed bilateral leg paresthesias and fatigue that he stated that improved with exercise and movement. Differentials include PAD due to patient history of heavy smoking seen he has 13 years old as well as diabetic neuropathy. Plan: -Patient saw his solder technician 01/2025 (7) Conjunctivitis, right eye: Status: Resolved Qualifiers: Acute conjunctivitis type: viral Conjunctivitis type: acute Qualified Code(s): B30.9 - Viral conjunctivitis, unspecified Assessment & Plan: Patient reports cough with mild clear phelgm, right ear fullness, congestion, and right eye redness and itchiness. On examination no purulence is present, like is viral URI. Patient reports is improving since onset 1 week ago but requests cough medicine. Plan: -Resolved as of 03/28/2025 visit Additional Assessment Patient plan of care was discussed with the attending physician Dr. Deejay Lopez, PGY1 Attending note: I, Price Stoddard MD, attest that I was physically present for the reveles portions of the service and evaluated the patient with the resident and I reviewed and discussed the case with the resident and agree with the resident's findings and plans of care as documented above. Price Stoddard MD Physician Billing Established Patient Established Patient: E/M Level 3-CPT 26477 Office Procedures [facility] Level of Care Nursing/Assessment Patient Status: Established Patient Nursing Assessment/Reassessment: Medication Reconciliation, Update PMH in EMR and Vital Signs Coordination of Care: Complex Care and Chronic Disease 1-5, Education Complex P t/Fam and Staff clarify orders Established Patient Charge Established Patient Point Assignment: 85 Established Patient Point Charge: EP Level 3 (80-115)
[2025-06-24 08:50] VITALS: BP 179/87; PULSE 76; RESP 19; TEMP 36.3; O2SAT 98; BMI 23.3
== END 2025-06-24 09:37 | disposition home or self-care (01) ==
LOC: HODAHC 08:35
PROVIDERS: Supervising Provider Internal Medicine; Visit Provider Student in an Organized Health Care Education/Training Program
DX: I10 Essential (primary) hypertension (principal); F17.200 Nicotine dependence, unspecified, uncomplicated; E11.29 Type 2 diabetes mellitus with other diabetic kidney complication; R80.9 Proteinuria, unspecified; B35.1 Tinea unguium; R20.2 Paresthesia of skin; Z79.84 Long term (current) use of oral hypoglycemic drugs
CPT/HCPCS: 99213; G0463

== ENCOUNTER 2025-08-09 13:05 | Outpatient (AMB) | payer MEDICAID, SELFPAY ==
--- NOTE | 2025-08-09 13:25 | ACNOTE_ITS ---
Vital Signs 08/09/25 13:26 Height 1.83 m Height Method Stated Weight 77.281 kg Weight Measurement Method Standing Scale BMI 23.1 BP 149/79 H Blood Pressure Source Automatic Cuff Blood Pressure Location Left Upper Arm Position Sitting Respiration 16 Pulse 64 Pulse Source Monitor Temp 97.7 F Temp Source Temporal Artery Scan Pulse Oximetry (%) 98 Oxygen Delivery Method Room Air Allergies/Meds Allergies & Medications Allergies No Known Allergies Allergy (Verified 08/09/25 13:28) Medication Reconciliation nicotine 14 mg/24 hr daily transdermal patch (Nicoderm CQ) 1 patch transdermal Q24H #28 ea 11/26/24 [Rx Confirmed 08/09/25] terbinafine HCl 250 mg tablet 250 mg PO QDAY onychomycosis #30 tabs 11/26/24 [Rx Confirmed 08/09/25] guaifenesin 400 mg tablet 400 mg PO QID PRN cough #20 tabs 01/28/25 [Rx Confirmed 08/09/25] ketorolac 0.4 % eye drops 1 drp ophthalmic (eye) QID Eye discomfort #5 mL 02/25/25 [Rx Confirmed 08/09/25] sitagliptin phosphate 100 mg tablet (Januvia) 100 mg PO QDAY #90 tabs 06/24/25 [Rx Confirmed 08/09/25] carvedilol 6.25 mg tablet 6.25 mg PO BID htn #60 tabs 08/09/25 [Rx] hydralazine 50 mg tablet 75 mg (1.5 x 50 mg) PO TID 30 days #135 tabs 08/09/25 [Rx] metformin 500 mg tablet 500 mg PO BIDWMEAL #180 tabs 08/09/25 [Rx] MA Intake Visit Data Collection New Patient or Established: Established Patient (seen at [facility] within 3 years) Seen by Clinical Staff ONLY (RN/MA): No Pain Present Currently: No Pain scale:: 0 Pain Scale Used: [place]ro[place]/Numerical Fire Behavior Analyst Required: No PCP or OBGYN visit in last 3 months: Yes Do You Feel Safe at Home: Yes Authorities Contacted: N/A Smoking Status Smoking Status: Current every day smoker Cessation Counseling Provided: SAE was advised that quitting smoking is the single most important factor to protect the health of themselves and their family. Discussed the benefits of quitting smoking with patient. Encouraged patient to quit smoking and provided Cessation assistance materials and resources. Tobacco Use: Cigarette Years smoked: 25 Are you interested in quitting?: No Immunization / Flu Flu Vaccine in the Last 12 Months: No Flu Vaccine Exclusion Criteria: No Exclusion Criteria Past Medical History Past Medical History NEUROLOGIC: Negative Neurological Disorders CARDIAC: Negative Cardiac Disorders or Congestive Heart Failure RESPIRATORY: Positive Smoking and Tobacco Use; Negative Chronic Obstructive Pulmonary Disease (COPD) GASTROINTESTINAL: Negative Gastrointestinal Disorders, Hepatitis or Colorectal Cancer GENITOURINARY: Negative Genitourinary Disorders, Renal Disease or Prostate Cancer REPRODUCTIVE: Negative Breast Cancer or Testicular Cancer MUSCULOSKELETAL: Negative Bone Cancer ENDOCRINE: Positive Endocrine Disorders and Diabetes Mellitus Type 2; Negative Diabetes Mellitus Type 1 HEMATOLOGIC: Negative Blood Disorders OTHER HISTORY: Negative Hospitalization, Down Syndrome, Developmental Delay, Shingles, Falls, Blood Transfusions, Blood Transfusion Reaction, Anesthesia Reactions, Organ Transplant, Chemotherapy, Hyperbaric Therapy, MRSA, VRSA, Vancomycin-Resistant Enterococci, Human Immunodeficiency Virus (HIV), Chicken Pox, Measles, Mumps, Rubella (Swedish Measles), Pertussis, Clostridium Difficile, Cancer, Breast Cancer, Colorectal Cancer, Lung Cancer, Prostate Cancer or Testicular Cancer Family History FAMILY HISTORY: Negative Family Psychiatric Problems, Family Respiratory Disorders, Family Cardiac Disorders, Family Gastrointestinal Problems, Family Cancer, Family Surgery or Family Anesthesia Reaction Surgical History SURGICAL: Negative Organ Transplant Social History SMOKING STATUS: Smoking status: Current every day smoker PACK YEARS: Pack-Years: 30 ALCOHOL: Alcohol Intake: Former (Last drink 2020) HOUSING: Housing: Apartment LIVES WITH: Lives With: Alone Patient Portal Questionaires PHQ-9 PHQ-2 Over the last 2 weeks, how often have you been bothered by any of the following problems? 1. Little interest or pleasure in doing things: not at all PHQ-9 8. Moving or speaking so slowly that other people could have noticed? - Or the opposite - being so fidgety or restless that you have been moving around a lot more than usual: not at all Source: Developed by Drs. Jeffrey Desai, Jasmin Lomax, Emilio Gillespie and colleagues, with an educational shawn from [employer]. Social History Living Situation History Housing: Apartment Tobacco History Smoking Status: Current every day smoker Packs per Day: 0.5 Pack-Years: 30 Alcohol History Alcohol Intake: Former (Last drink 2020) Domestic Abuse History Do You Feel Safe at Home: Yes Review of Systems Report any current symptoms Only answer those that you have currently: Past Medical History Past Medical History Have you ever been diagnosed with any of the following: Cardiology Problems Congestive Heart Failure: No Respiratory Problems Chronic Obstructive Pulmonary Disease (COPD): No Smoking: Yes Tobacco Use: Yes Stomache/Intestinal Problems Hepatitis: No Colorectal Cancer: No Genital/Urinary Problems Renal Disease: No Prostate Cancer: No Reproductive Problems Breast Cancer: No Testicular Cancer: No Musculoskeletal Problems Bone Cancer: No Endocrine Problems Diabetes Mellitus Type 1: No Diabetes Mellitus Type 2: Yes Other Problems Hospitalization: No Down Syndrome: No Developmental Delay: No Shingles: No Falls: No Blood Transfusions: No Blood Transfusion Reaction: No Anesthesia Reactions: No Organ Transplant: No Chemotherapy: No Hyperbaric Therapy: No MRSA: No VRSA: No Vancomycin-Resistant Enterococci: No Human Immunodeficiency Virus (HIV): No Chicken Pox: No Measles: No Mumps: No Rubella (Swedish Measles): No Pertussis: No Clostridium Difficile: No Cancer: No Lung Cancer: No History of Present Illness HPI Narrative Patient is a 65-year-old male with past medical history of hypertension, type 2 diabetes, and tobacco use disorder who presents to the [facility] on 03/18/2025 for 1 month follow-up visit for BP recheck as well as renal panel recheck. Office BP 146/71 today which is improved. Patient reports that he is taking all of his BP medications. Renal panel from [facility] shows creatinine that is back to baseline and that hyperkalemia is resolved. However patient reports some mild ankle edema. We will discontinue the amlodipine for now and increase the hydralazine dose from 25 to 50 mg TID. Patient states right eye itchiness has resolved. He did not need to use the prescription ketorolac and used some over the counter drops. 06/25/25: Patient has no acute complaints. BP today 179/87, states that he runs systolic 150s-160s at home. Does have some tinitus that started about 3-4 months ago. Will increase Coreg to 6.25 BID and continue hydralazine 50 TID. Patient to follow up in 2-3 weeks with A1c and CMP. Urine microalbumin ordered to see if patient is able to tolerate potential ACEI/ARB. It is noted that patient developed KATHLEEN and hyperkalemia due to lisinopril use in the past. 08/09/25: Patient seen at the [facility] for follow up on lab results. Patient states he has no new issues and states that he had ran out of his hydralazine for the past 2 weeks. He also mentioned he has been drinking more sodas and not compliant with his diabetes diet, but has been taking all his medications. States his BP even when taking his two BP medications was still in the 150-160s at home. Labs were reviewed. Otherwise no other complaints. Review of Systems Review of Systems Systems Reviewed: All systems reviewed, normal except as documented Objective/Exam Narrative Physical exam: Physical Exam: General: Alert, no acute distress. Skin: Warm, dry, intact. Head: Normocephalic, atraumatic. Eye: Normal conjunctiva, PERRL. Throat: Oral mucosa moist. No obvious lesions in oropharynx. Cardiovascular: Regular rate and rhythm, no murmur, +S1/S2. Respiratory: Lungs are clear to auscultation, respirations unlabored, no crackles, no wheezing. Gastrointestinal: Soft, nontender, non-distended. No guarding or rebound tenderness. Extremities: No edema, no cyanosis, no clubbing. 2+ radial pulse bilaterally, 2+ pedal pulse bilaterally. Neuro: No focal deficits observed. Conversant, moving all extremities. No overt cerebellar signs/incoordination. Psychiatric: Cooperative, appropriate affect. Assessment & Plan Diagnosis / Problem List (1) Hypertension: Status: Chronic Qualifiers: Hypertension type: primary hypertension Qualified Code(s): I10 - Essential (primary) hypertension Assessment & Plan: History of essential hypertension. Previously tried control with losartan 50 mg BID, but developed KATHLEEN and hyperkalemia 11/26/2024: BP 188/90 12/17/2024: BP 145/79 01/28/2025: BP 163/77 02/25/2025: BP 146/70 03/18/2025: BP 146/71 06/24/2025: BP 179/87 08/09/2025: BP 149/79 Plan: -Continue carvedilol 6.25 mg BID -Increased hydralazine 50 mg to 75 mg TID -Follow up in 2 months with repeat CMP -Refilled med (2) Diabetes mellitus: Status: Chronic Qualifiers: Diabetes mellitus complication detail: with diabetic microalbuminuria Diabetes mellitus complication status: with kidney complications Diabetes mellitus halfway insulin use: without bookseamer blindstitch use Diabetes mellitus type: type 2 Qualified Code(s): E11.29 - Type 2 diabetes mellitus with other diabetic kidney complication; R80.9 - Proteinuria, unspecified Assessment & Plan: A1c 05/2024: 6.5 = controlled Alb/Cr ratio: 46 [49 in 01/2024] = microalbuminuria Paring Machine Operator: Patient sees an Paring Machine Operator in [place]. States last seen around 03/2024. Encouraged to see at least once yearly. Ammunition Supervisor: None. Completed diabetic foot exam on 07/23/2024. A1c 11/12/2024: 6.2 A1c 06/2025: 6.9 Plan: -Continue regular follow up with camera repair technician and biology teacher for annual screening for diabetic neuropathy and nephropathy -Continue home metformin 500 mg twice daily -Continue home sitagliptin 100 mg once daily -Advised patient to maintain diabetic diet and avoid sugar intake -Refilled meds (3) Microalbuminuria: Status: Chronic Assessment & Plan: Alb/Cr ratio: 46 [49 in 01/2024] and now 44 06/2025 Was previously on lisinopril but developed KATHLEEN and hyperkalemia 02/2025 Plan: -not on PENNY/ARB as developed hyperkalemia and KATHLEEN in the past -Will repeat in 6 months Office Procedures [facility] Level of Care Nursing/Assessment Patient Status: Established Patient Nursing Assessment/Reassessment: Medication Reconciliation, Update PMH in EMR and Vital Signs Coordination of Care: Complex Care/Chronic Disease 5 or more, Education Complex Pt/Fam, Consent,records obtained, informed consent, Lab and Imaging orders, Results/Orders obtained and Staff clarify orders Established Patient Charge Established Patient Point Assignment: 120 Established Patient Point Charge: Level 4 (120-155)
[2025-08-09 13:26] VITALS: BP 149/79; PULSE 64; RESP 16; TEMP 36.5; O2SAT 98; BMI 23.1
== END 2025-08-09 13:36 | disposition home or self-care (01) ==
LOC: HODAHC 13:05
PROVIDERS: Supervising Provider Internal Medicine
DX: I10 Essential (primary) hypertension (principal); E11.42 Type 2 diabetes mellitus with diabetic polyneuropathy; E11.29 Type 2 diabetes mellitus with other diabetic kidney complication; R80.9 Proteinuria, unspecified; Z79.84 Long term (current) use of oral hypoglycemic drugs
CPT/HCPCS: 99214; G0463